=== PATIENT | female | born 1985 | race Caucasian/White ===

== ENCOUNTER → 2019-04-14 10:36 | Day surgery (SDC) | payer OTHER ==
[~2019-04-14 10:36] MED LIST: Acetaminophen TAB* 325 MG PO PRN; Buffered Lidocaine 1% SYRIN* 1 ML/SYRINGE INTRADERM ONE; Bupivacaine 0.25% SDV PF* 10 ML VIAL INJ ONE; Dexamethasone IV* 4 MG/ML 1 ML (4 MG) ONE; DiMENhydriNATE IV* 50 MG/ML VIAL IV PUSH PRN; Famotidine IV* 10 MG/ML 2 ML (20 mg) ONE; HYDROcodone/ACETAMIN 5-325 MG* 1 TAB ONE; HYDROcodone/ACETAMIN 5-325 MG* 1 TAB PO PRN; Ketorolac INJ* 30 MG/ML 1 ML VIAL ONE; Levalbuterol 0.63MG/3ML NEB* UNIT OF USE INH PRN; Midazolam* 1 MG/ML 2 ML VIAL (2 MG) ONE; Naloxone* 0.4 MG/ML 1 ML VIAL IV PRN; OXYTOCIN* 10 UNITS/ML 1 ML VIAL ONE; Ondansetron INJ* 2 MG/ML VIAL IV PRN; PROCHLORPERAZINE INJ 5 MG/ML 2 ML VIAL IV PRN; ceFAZolin 2 GM in NS PREMIX(*) 2 GM/100 ML BAG IVPB ONE; diPHENhydraMINE IV* 50 MG/ML 1 ml VIAL (BENADRYL) IV PRN; diPHENhydraMINE IV* 50 MG/ML 1 ml VIAL (BENADRYL) ONE; fentaNYL* 50 MCG/ML 2 ML VIAL (100 MCG VIAL) IV PRN; fentaNYL* 50 MCG/ML 2 ML VIAL (100 MCG VIAL) ONE
[2019-04-14 13:45] VITALS: BP 135/83
--- NOTE | 2019-04-14 18:29 | OP ---
DATE OF OPERATION: 04/14/19 [facility] DATE OF : 83 ATTENDING SURGEON: Greyson Esparza MD. 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 PRE-OP DIAGNOSIS: Right breast cancer. POST-OP DIAGNOSIS: Right breast cancer. OPERATIVE PROCEDURE: Placement of left subclavian approach PowerPort. INDICATION FOR PROCEDURE: History of breast cancer requiring PowerPort for treatment. Procedure was explained to the patient. Risks included, but not limited to, bleeding, infection, and pneumothorax were explained. She seemed to understand and agreed to the procedure and all questions were answered. DESCRIPTION OF PROCEDURE: The patient was taken to the operating room and placed supine. Preoperative antibiotics were given. After the successful induction of sedation, the left chest was prepped and draped in sterile fashion. Time-out was performed indicating correct patient and correct procedure. She was placed in a Trendelenburg position. A needle was placed in the left subclavian vein and using Seldinger technique, a wire was passed through the needle. The needle was removed. The track was dilated. A split sheath was placed over the wire. The wire was removed. The catheter was placed through the split sheath to about 25 cm from the skin. Fluoroscopy showed good positioning. The split sheath was completely removed. A subcutaneous pocket was then made below this entry site and a catheter was tunnelled under the skin and subcutaneous tissue towards this pocket. The catheter was then connected to the PowerPort. Blood easily aspirated from the PowerPort and it was flushed with heparinized saline. The pocket was small. PowerPort fit snugly and did not move. The PowerPort pocket was closed in layers using 3-0 Monocryl including the skin. Glue was also applied to the skin. She tolerated the procedure well. Estimated blood loss was minimal. She was taken to the Recovery in stable condition where a chest x-ray was ordered. [id number]/[facility] #: [id number] [facility]Jim
== END | disposition home or self-care (01) ==
LOC: OR 10:36
PROVIDERS: ATTEND Surgery
DX: C50.211 Malignant neoplasm of upper-inner quadrant of right female breast (principal); C77.3 Secondary and unspecified malignant neoplasm of axilla and upper limb lymph nodes; I10 Essential (primary) hypertension; E03.9 Hypothyroidism, unspecified; J45.990 Exercise induced bronchospasm
CPT/HCPCS: 71045; 76000; 81025; C1788; J0690; J1100; J1200; J1642; J1885; J2250; J2590; J3010; J3490